=== PATIENT | female | born 1980 | race African-American/Black ===

== ENCOUNTER 2024-06-14 02:11 | Emergency (ER) | payer SELFPAY ==
[2024-06-14 02:18] VITALS: BP 106/68
[2024-06-14 02:29] VITALS: BP 99/68
--- NOTE | 2024-06-14 02:43 | ED.GENMED ---
History of Present Illness
<ARI Oscar - Last Filed: 06/14/24 18:02>
General
Chief Complaint: Bowel Problem
Source: patient
Exam Limitations: none
Time Seen by Provider: 06/14/24 02:35
History of Present Illness
History of Present Illness:
This is a 43 year old female that comes in with c/o upper abdominal pain. states that on Monday they had [place] for dinner. States that she then started with abdominal pain and this lasted all day on . States that she normally as a BM
every other day. States that she felt she was constipated so she tried a suppository bur nothing worked. States that around 1pm today she awoke with a fever of 102.8 for which she took Tylenol and went back to bed. States that the pain continued to
get worse. States that she had chills, chest tightness, abd pain and a headache. Denies any SOB, nausea vomiting, diarrhea, dizziness, urinary burning.
Past History
<ARI Oscar - Last Filed: 06/14/24 18:02>
Past History
ED Past Medical History: Hypercholesterolemia, Hypothyroidism and Other (Migraine; lumbar disc disease, )
ED Past Surgical History: Orthopedic (Discectomy)
Patient has exhibited threatening behavior?: No
Social History
Tobacco: Non-smoker
Alcohol: Daily (vodka 2-3 airplane bottles)
Drug: None
Personal:
Living: with family
Employment: Not employed
Family History
Family History: Other (Noncontributory)
Review of Systems
<ARI Oscar - Last Filed: 06/14/24 18:02>
Review of Systems
All Other Systems: ROS reviewed and negative except as documented in HPI and ROS
Constitutional: Reports fever and chills
EENT: Reports no symptoms
Respiratory: Reports no symptoms; Denies cough or trouble breathing
Cardiac: Reports chest pain (tightness)
ABD/GI: Reports abdominal pain (Upper abd pain); Denies nausea, vomiting or diarrhea
: Reports no symptoms; Denies dysuria, frequency or urgency
Musculoskeletal: Reports no symptoms
Skin: Reports no symptoms
Neurological: Reports headache; Denies dizzy
Psychiatric: Reports no symptoms
Phy Exam
<ARI Oscar - Last Filed: 06/14/24 18:02>
General Physical Exam
General Presentation: mild distress
General age: appears stated age
General Skin: warm and dry
General Habitus: normal
General Mental: alert
General Hydration: appears well hydrated
ENT Exam
ENT Exam: TM's normal, pharynx normal and neck supple
Eye Exam
Eye Exam: EOMI
Cardiovascular Exam
Cardiovascular Exam: no edema, no murmur, normal peripheral pulses and tachycardia
Pulmonary Exam
Pulmonary Exam: lungs clear, no respiratory distress, no rales, chest non tender, no crackles, no rhonchi, no wheezing and no cough
Gastrointestinal Exam
Gastrointestinal Exam: normal bowel sounds, soft, no organomegaly, no pulsatile mass, non distended and tender (Epigastric and RUQ tenderness with palpation)
Musculoskeletal Exam
Musculoskeletal Exam: full ROM and no edema
Skin Exam
Skin Exam: normal color, warm/dry, no rash and no petechia
Psychiatric Exam
Psychiatric Exam: normal mood/affect
Course
<ARI Oscar - Last Filed: 06/14/24 18:02>
Orders/Labs/Results
Orders:
Orders
06/14/24 02:42
0.9% Sodium Chloride 1000 ml [Nss] 1,000 ml IV BOLUS
HYDROmorphone [Dilaudid] 1 mg IV NOW STA
Ondansetron Injectable [Zofran] 4 mg IV NOW STA
US Abdomen Complete/Upper Urgent
Comment:
Reason For Exam: Upper abd pain
06/14/24 02:43
Pantoprazole [Protonix IV] 40 mg IV NOW STA
06/14/24 02:46
Electrocardiogram (*1) Urgent
Reason for Study: Abdominal Pain
EKG- Treatment ONCE
06/14/24 02:50
Complete Blood Count/With Diff Urgent
Comprehensive Metabolic Panel Urgent
HCG, Serum Qualitative Screen Urgent
Comment: ADD ON
Lipase Urgent
Troponin I Urgent
06/14/24 04:05
CT Abd/pelvis W Iv Cont Urgent
Comment:
Reason For Exam: Upper abd pain
06/14/24 04:16
Add On- LAB Urgent
Tests Added?: serum hcg qualatative
06/14/24 05:53
Sucralfate Suspension [Carafate Suspension] 1 gm .ROUTE .STK-MED ONE
06/14/24 05:54
Sucralfate Suspension [Carafate Suspension] 1 gm PO NOW STA
Abnormal Lab Results
06/14/24
02:50
WBC 12.9 H 10^3/uL
(4.8-10.8)
RBC 4.10 L 10^6/uL
(4.20-5.40)
Hgb 11.2 L g/dL
(12.0-16.0)
Hct 32.2 L %
(37.0-47.0)
MCV 78.5 L fL
(81.0-99.0)
Abs Immat Gran (auto) 0.1 H 10^3/uL
(0-0.05)
Absolute Neuts (auto) 11.9 H 10^3/uL
(1.4-6.5)
Absolute Lymphs (auto) 0.4 L 10^3/uL
(1.2-3.4)
Neutrophils % 92.0 H %
(42.2-75.2)
Lymphocytes % 2.7 L %
(20.5-51.1)
Glucose 122 H mg/dl
(70-99)
AST 199 H U/L
(14-36)
ALT 106 H U/L
(0-35)
Total Protein 6.2 L g/dl
(6.3-8.2)
06/14/24 02:50
06/14/24 02:50
Leukocytosis, H/H slightly low. hyperglycemia, AST/ALT elevation. Total protein slightly low. Lipase 72, Troponin <0.012
Vital Signs
Initial and Last Documented VS:
Initial Vital Signs
Temp Pulse Resp BP Pulse Ox
98.5 F 128 24 106/68 99
06/14/24 02:18 06/14/24 02:18 06/14/24 02:18 06/14/24 02:18 06/14/24 02:18
Last Documented Vital Signs
Temp Pulse Resp BP Pulse Ox
98.5 F 107 16 105/62 97
06/14/24 02:18 06/14/24 05:30 06/14/24 05:30 06/14/24 05:00 06/14/24 05:00
<Manan Oh, DO - Last Filed: 06/14/24 05:48>
Orders/Labs/Results
Orders:
Orders
06/14/24 02:42
0.9% Sodium Chloride 1000 ml [Nss] 1,000 ml IV BOLUS
HYDROmorphone [Dilaudid] 1 mg IV NOW STA
Ondansetron Injectable [Zofran] 4 mg IV NOW STA
US Abdomen Complete/Upper Urgent
Comment:
Reason For Exam: Upper abd pain
06/14/24 02:43
Pantoprazole [Protonix IV] 40 mg IV NOW STA
06/14/24 02:46
Electrocardiogram (*1) Urgent
Reason for Study: Abdominal Pain
EKG- Treatment ONCE
06/14/24 02:50
Complete Blood Count/With Diff Urgent
Comprehensive Metabolic Panel Urgent
HCG, Serum Qualitative Screen Urgent
Comment: ADD ON
Lipase Urgent
Troponin I Urgent
06/14/24 04:05
CT Abd/pelvis W Iv Cont Urgent
Comment:
Reason For Exam: Upper abd pain
06/14/24 04:16
Add On- LAB Urgent
Tests Added?: serum hcg qualatative
06/14/24 05:53
Sucralfate Suspension [Carafate Suspension] 1 gm .ROUTE .STK-MED ONE
06/14/24 05:54
Sucralfate Suspension [Carafate Suspension] 1 gm PO NOW STA
Abnormal Lab Results
06/14/24
02:50
WBC 12.9 H 10^3/uL
(4.8-10.8)
RBC 4.10 L 10^6/uL
(4.20-5.40)
Hgb 11.2 L g/dL
(12.0-16.0)
Hct 32.2 L %
(37.0-47.0)
MCV 78.5 L fL
(81.0-99.0)
Abs Immat Gran (auto) 0.1 H 10^3/uL
(0-0.05)
Absolute Neuts (auto) 11.9 H 10^3/uL
(1.4-6.5)
Absolute Lymphs (auto) 0.4 L 10^3/uL
(1.2-3.4)
Neutrophils % 92.0 H %
(42.2-75.2)
Lymphocytes % 2.7 L %
(20.5-51.1)
Glucose 122 H mg/dl
(70-99)
AST 199 H U/L
(14-36)
ALT 106 H U/L
(0-35)
Total Protein 6.2 L g/dl
(6.3-8.2)
06/14/24 02:50
06/14/24 02:50
Vital Signs
Initial and Last Documented VS:
Initial Vital Signs
Temp Pulse Resp BP Pulse Ox
98.5 F 128 24 106/68 99
06/14/24 02:18 06/14/24 02:18 06/14/24 02:18 06/14/24 02:18 06/14/24 02:18
Last Documented Vital Signs
Temp Pulse Resp BP Pulse Ox
98.5 F 107 16 105/62 97
06/14/24 02:18 06/14/24 05:30 06/14/24 05:30 06/14/24 05:00 06/14/24 05:00
<ARI Oscar - Last Filed: 06/14/24 18:02>
MDM/Problems Addressed
Differential Diagnosis Includes:
pancreatitis, Gallbladder disease
MDM/Problems Addressed:
This is a 43 year old female that comes in with c/o upper abd pain. States that she has not had a BM in 2 days and she normally goes every other day. States that she started with abd pain on Monday and this continued all day on . States
that she tried a suppository but nothing worked. States that she awoke tonight with a fever of 102.8
Will check labs and get US, Pain medication and IV fluids
Back into see patient. Explained that her blood work shows that her WBC are slightly elevated. and her liver enzymes are elevated. Will get CT scan of the abd. Dr Oh to follow.
Chronic conditions affecting care:
NA
Acute Exacerbation and/or Progression of Chronic Illness:
NA
<ARI Oscar - Last Filed: 06/14/24 18:02>
*Radiology
Radiology exam reviewed: radiology read reviewed (US- gallbladder is normal. Negative Chopra sign. No biliary ductal dilation. CT=No specific findins to explain upper abdominal pain. NO acute intra-abdominal process identified. Mild hepatic fatty
infiltration. Small hiatal hernia. )
*Pulse Oximetry
Patient hypoxic: no
*EKG
Interpreted by ED Provider?: Yes
Heart Rate: 104
Rate: tachycardiac
Rhythm: sinus
Midway: normal axis
Interval: normal interval
QRS Pattern: normal QRS
Ischemia: no ischemia
*Fire Control Technician B Interpretation
Rate: Fire Control Technician B- N/A
*Critical Care Note
Total Time (30-74mins, 75-104mins- exclusive of procedures): Not Applicable
<Manan Oh DO - Last Filed: 06/14/24 05:48>
Update Note
Update Note:
CT abdomen and pelvis with IV contrast
IMPRESSION:
Inflammation about the pancreatic head suggesting pancreatitis; correlate with lipase. Masslike appearance of the pancreatic head suspicious for pancreatic malignancy. Multiple cystic foci. Recommend ERCP/EUS.
Mild cardiomegaly and coronary artery disease. Small hiatal hernia. Hepatic steatosis. No cholecystitis. No obstructing renal stone. Appendix is normal. No bowel obstruction. Diffuse athero-'s chronic disease of the aorta and its branches.
Spine degeneration.
Finalized at 4:43 AM EST
ED Attending Note
<ARI Oscar - Last Filed: 06/14/24 18:02>
-
Portions of this chart may have been created with voice recognition software.� Occasional wrong word or��sound alike� substitutions may have occurred due to the inherent limitations of voice recognition software.
<Manan Oh DO - Last Filed: 06/14/24 05:48>
ED Attending Note
Patient seen and examined by attending physician: Yes
Discharge Plan
Departure
Patient Disposition: Home (Routine Discharge)
Date of Disposition: 06/14/24
Time of Disposition: 05:43
Patient with high blood pressure during this ER visit?: No
Condition: Good
Covid-19: Not Applicable
Discharge Problem:
Abdominal pain, Gastritis
Instructions: Gastritis, Abdominal Pain
Prescriptions:
New
pantoprazole [Protonix] 40 mg tablet,delayed release (DR/EC)
40 mg PO DAILY Qty: 20 0RF
No Action
prenat.vits,angelique,sei-sncw-lnatp Tablet
1 tab PO DAILY
acetaminophen 325 mg Tablet
650 mg PO Q4HPRN PRN (Reason: mild pain) Qty: 0 0RF
ibuprofen 600 mg Tablet
600 mg PO Q6HPRN PRN (Reason: moderate pain/cramps) Qty: 0 0RF
lidocaine 5 % adhesive patch,medicated
1 patch topical DAILY PRN (Reason: Pain) Qty: 15 0RF
Referrals:
Carlota Fung CRNP [Family Provider] -
Activity Restrictions/Additional Instructions:
It was a pleasure meeting you and taking part in your care. We hope for your continued healing and wellness.
Please read discharge instructions in their entirety. However, they are for general education and may not describe your exact diagnosis at discharge. Information on your ER visit and medical conditions were discussed with you along with appropriate
follow up information...
If indicated, please take your medications as instructed and indicated on discharge paperwork.
Please schedule a follow up appointment as directed. Call to schedule an appointment
Please return to the emergency department with ANY change in, persisting, or worsening of symptoms. If any of your symptoms do not improve, or persist, or become more severe within 6-12 hours, please return to the emergency department for further
care.
Please return to the emergency department if you develop a headache, neck pain/stiffness, fever greater than 100.4F, chest pain, shortness of breath, persistent nausea, vomiting, slurred speech, difficulty walking, numbness/tingling, weakness, signs
of infection or any other symptoms that are worrisome to you.
If you have any questions or concerns please do not hesitate to call the Hospital at or E-mail me directly at [email or web address]
Interventions
Interventions:
*Risk Screen - Suicide Last Done: 06/14/24 04:17
*General Assessment Last Done: 06/14/24 04:17
*Neglect/Abuse Screening Last Done: 06/14/24 02:21
*Nursing Disposition Last Done: 06/14/24 06:08
MK-Udsqqz-Pdyydlmflj Assessment Last Done: 06/14/24 04:17
Discharge Date and Time
Discharge Date/Time: 06/14/24 06:09
Print Language: POLISH
[2024-06-14] MEDS: DILAUDID 1 MG IV (02:51)
[2024-06-14] MEDS: PROTONIX IV 40 MG IV (02:52)
[2024-06-14] MEDS: ZOFRAN 4 MG IV (02:52)
[2024-06-14] MEDS: NSS 1000 IV (02:52)
[2024-06-14 03:01] VITALS: BP 104/71
[2024-06-14 03:29] LABS: % Basophils 0.2 % (0-2); % Eosinophils 0.2 % (0-6); % Immature Granulocytes 0.4 % (0-0.5); % Lymphocytes 2.7 % (20.5-51.1); % Monocytes 4.5 % (1.7-9.3); Absolute Immature Granulocytes 0.1 10^3/uL (0-0.05); Absolute Lymphocytes 0.4 10^3/uL (1.2-3.4); Absolute Monocytes 0.6 10^3/uL (0.1-0.6); Absolute Neutrophils 11.9 10^3/uL (1.4-6.5); Hematocrit 32.2 % (37.0-47.0); Hemoglobin 11.2 g/dL (12.0-16.0); Mean Corp Hgb Conc. 34.8 g/dL (33.0-37.0); Mean Corpuscular Hgb 27.3 pg (27.0-31.0); Mean Corpuscular Volume 78.5 fL (81.0-99.0); Mean Platelet Volume 10.1 fL (7.4-10.4); Nucleated Red Blood Cells % 0 %; Platelet Count 343 10^3/uL (130-400); Red Cell Dist. Width 14.5 % (11.5-14.5); White Blood Cell Count 12.9 10^3/uL (4.8-10.8)
[2024-06-14 03:39] LABS: ALT (SGPT) 106 U/L (0-35); AST (SGOT) 199 U/L (14-36); Albumin 4.1 g/dl (3.5-5.0); Alkaline Phosphatase 89 U/L (38-126); Blood Urea Nitrogen 14 mg/dl (7-17); Calcium 9.9 mg/dl (8.4-10.2); Carbon Dioxide 24 mmol/L (22-30); Chloride 103 mmol/L (98-107); Glucose 122 mg/dl (70-99); Lipase 72 U/L (23-300); Potassium 3.8 mmol/L (3.5-5.1); Sodium 138 mmol/L (135-145); Total Bilirubin 0.5 mg/dl (0.2-1.3); Total Protein 6.2 g/dl (6.3-8.2); eGFR > 60.00
[2024-06-14 03:58] LABS: Troponin I < 0.012 ng/ml
[2024-06-14 04:00] VITALS: BP 107/66
[2024-06-14 05:00] VITALS: BP 105/62
[2024-06-14 05:00] LABS: HCG, Serum Qualitative Screen Negative
[2024-06-14] MEDS: CARAFATE SUSPENSION 1 GM PO (05:54)
== END 2024-06-14 06:09 | disposition home or self-care (01) ==
LOC: EMR 02:11
PROVIDERS: Clinical Nurse Specialist Family Health; EMERGENCY PHYSICIAN Student in an Organized Health Care Education/Training Program; FAMILY PHYSICIAN Nurse Practitioner Family
DX: K29.70 Gastritis, unspecified, without bleeding (principal); R10.10 Upper abdominal pain, unspecified
CPT/HCPCS: 99285; 96374; 96375 ×2; 96361; 74177; 76700; 80053; 83690; 84484; 84703; 85025; 93005; Q9967

== ENCOUNTER 2025-07-07 19:24 | Emergency (ER) | payer BC, SELFPAY ==
[2025-07-07 19:31] VITALS: BP 135/101
[2025-07-07] MEDS: TYLENOL 650 MG PO (22:15)
--- NOTE | 2025-07-08 01:50 | ED.GENMED ---
History of Present Illness
General
Chief Complaint: Fall
Source: patient
Exam Limitations: none
Time Seen by Provider: 07/07/25 23:02
Nursing documentation reviewed up to this point in time: agreed with
History of Present Illness
History of Present Illness:
Patient is a 45-year-old female who presents to the emergency department w/ concern of head injury. Patient states yesterday evening she tripped on one of her daughter's toys in the kitchen falling forward striking her head on the granite
countertop. She is unsure if she may have lost consciousness for a few seconds. She landed on the ground striking her right side on the floor, as well. She reports persistent headache as well as mild nausea and brain fog throughout the day. She
also has had intermittent blurry vision however currently this has improved. She describes a pain in her right lower chest wall.
She denies any vomiting, neck pain, numbness/tingling or weakness in extremities. She has not had any bowel/bladder incontinence. No chest pain or difficulty breathing.
Patient is not on any oral anticoagulation.
No past history of head injuries.
Past History
Past History
ED Past Medical History: Hypercholesterolemia, Hypothyroidism and Other (Migraine; lumbar disc disease, )
ED Past Surgical History: Orthopedic (Discectomy)
Patient has exhibited threatening behavior?: No
Social History
Tobacco: Non-smoker
Alcohol: Daily (vodka 2-3 airplane bottles)
Drug: None
Personal:
Living: with family
Employment: Not employed
Family History
Family History: Other (Noncontributory)
Review of Systems
Review of Systems
Allergies reviewed?: Yes
All Other Systems: ROS reviewed and negative except as documented in HPI and ROS
Phy Exam
Physical Exam
Physical Exam:
GENERAL: No acute distress
HEENT: Reproducible tenderness to right frontal scalp, extraocular muscles intact, pupils equal round reactive light bilaterally, no signs of entrapment, dentition intact, no other obvious trauma
NECK: no midline tenderness, normal range of motion, no other obvious trauma
BACK: no midline tenderness, no other obvious trauma
CHEST: Mild tenderness to right lateral lower chest, no flail segment, no subcutaneous emphysema, no other obvious trauma
LUNGS: clear to auscultation bilaterally
CARDIOVASCULAR: regular rate and rhythm
ABDOMEN: soft, non-tender, no masses, no other obvious trauma
PELVIS: stable, no obvious injury
EXTREMITIES: moving all extremities, distal pulses intact, no other obvious trauma
NEUROLOGIC: awake, alert x 3, fluent speech and steady gait, no facial droop or asymmetry, strength 5/5 in bilateral upper and lower extremities with normal sensation, no focal deficits
Course
Orders/Labs/Results
Orders:
Orders
07/07/25 19:38
CT Cervical Spine W/o Iv Contr Urgent
Comment: no c-spine tenderness.
Reason For Exam: head injury from fall, neck pain,
CT Head W/o Iv Contrast Urgent
Comment:
Reason For Exam: head injury, headache, nausea, neck pain
07/07/25 19:39
CR Ribs-right 3 Vw W/pa Chest* Urgent
Reason For Exam: fall right rib pain
07/07/25 22:11
Acetaminophen [Tylenol] 650 mg .ROUTE .STK-MED ONE
07/07/25 22:15
Acetaminophen [Tylenol] 650 mg PO NOW STA
07/07/25 23:43
Ketorolac [Toradol] 15 mg IM NOW STA
Vital Signs
Initial and Last Documented VS:
Initial Vital Signs
Temp Pulse Resp BP Pulse Ox
98.1 F 107 18 135/101 100
07/07/25 19:31 07/07/25 19:31 07/07/25 19:31 07/07/25 19:31 07/07/25 19:31
Last Documented Vital Signs
Temp Pulse Resp BP Pulse Ox
98.1 F 107 18 135/101 100
07/07/25 19:31 07/07/25 19:31 07/07/25 19:31 07/07/25 19:31 07/08/25 01:57
MDM/Problems Addressed
Differential Diagnosis Includes:
Not limited to: Concussion, contusion, doubt intracerebral hemorrhage, rib fracture, rib contusion, etc.
MDM/Problems Addressed:
45 year-old female with headache, dizziness, nausea after mechanical trip and fall yesterday with head injury. She also has tenderness in right lower chest wall which occurred during fall. No vomiting, weakness or decreased sensation in extremities.
No ataxia, dysarthria. No dyspnea. No other traumatic injuries.
Vitals and physical exam as above.
Prior to my evaluation, CT imaging of head and cervical spine were obtained without acute traumatic injuries.
Right rib series x-ray performed and reviewed by me, which shows no obvious displaced rib fracture in clear lungs bilaterally.
Ultimately, suspect concussion and likely rib contusion. Will plan to treat patient�s headache with a dose of Toradol and reassess.
Update: upon reassessment � it appears patient may have eloped from emergency department prior to receiving toradol or discharge instructions. I was able to contact patient on the phone who said she decided she didn�t wanna wait for Toradol shot.
I reviewed imaging findings with patient once again over the phone and suspicion for concussion. Reviewed supportive care and strict return precautions. Patient will follow up with her primary care provider.
Chronic conditions affecting care:
N/A
Acute Exacerbation and/or Progression of Chronic Illness:
N/A
*Radiology
Radiology exam reviewed: preliminary read by ED provider (Right rib series x-ray reviewed by me-no acute displaced rib fracture) and radiology read reviewed
*Pulse Oximetry
SaO2: 100
Oxygen Mode of Delivery: Room air
Patient hypoxic: no
*EKG
Interpreted by ED Provider?: NA
*Composition Weatherboard Installer Interpretation
Rate: Composition Weatherboard Installer- N/A
*Critical Care Note
Total Time (30-74mins, 75-104mins- exclusive of procedures): Not Applicable
ED Attending Note
-
Portions of this chart may have been created with voice recognition software.� Occasional wrong word or��sound alike� substitutions may have occurred due to the inherent limitations of voice recognition software.
Discharge Plan
Departure
Patient Disposition: Elopement
Date of Disposition: 07/08/25
Time of Disposition: 01:30
Patient with high blood pressure during this ER visit?: Yes
Discharge Problem:
Concussion, Contusion of rib on right side
Prescriptions:
No Action
prenat.vits,angelique,[id number]-[id number] Tablet
1 tab PO DAILY
acetaminophen 325 mg Tablet
650 mg PO Q4HPRN PRN (Reason: mild pain) Qty: 0 0RF
ibuprofen 600 mg Tablet
600 mg PO Q6HPRN PRN (Reason: moderate pain/cramps) Qty: 0 0RF
lidocaine 5 % adhesive patch,medicated
1 patch topical DAILY PRN (Reason: Pain) Qty: 15 0RF
pantoprazole [Protonix] 40 mg tablet,delayed release (DR/EC)
40 mg PO DAILY Qty: 20 0RF
Referrals:
Carlota Fung CRNP [Family Provider]
Interventions
Interventions:
*Risk Screen - Suicide Last Done: 07/07/25 19:31
*General Assessment Last Done: 07/07/25 19:31
*Neglect/Abuse Screening Last Done: 07/07/25 19:31
*Nursing Disposition Last Done: 07/08/25 01:40
Discharge Date and Time
Discharge Date/Time: 07/08/25 01:40
Print Language: [id number]
== END 2025-07-08 01:40 | disposition left against medical advice (07) ==
LOC: EMR 19:24
PROVIDERS: EMERGENCY PHYSICIAN Emergency Medicine; FAMILY PHYSICIAN Nurse Practitioner Family
DX: S06.0XAA Concussion with loss of consciousness status unknown, initial encounter (principal); S20.211A Contusion of right front wall of thorax, initial encounter; W01.198A Fall on same level from slipping, tripping and stumbling with subsequent striking against other object, initial encounter; E03.9 Hypothyroidism, unspecified; E78.00 Pure hypercholesterolemia, unspecified
CPT/HCPCS: 99284; 70450; 71101; 72125